=== PATIENT | female | born 1945 | race Caucasian/White ===

== ENCOUNTER 2016-08-08 10:14 | Outpatient (CLI) | payer MEDICARE ==
[2016-08-08 10:54] LABS: #Basophils 0.1 thou/uL (0.0-0.2); #Eosinphils 0.1 thou/uL (0.0-0.7); #Lymphocytes 1.5 thou/uL (1.20-3.40); #Monocytes 0.4 thou/uL (0.11-0.59); #Neutrophils 2.5 thou/uL (1.40-6.50); %Basophils 1.9 % (0.0-1.0); %Eosinophils 1.9 % (0.0-10.0); %Monocytes 7.9 % (0.0-10.0); Hematocrit 43.3 % (36.0-47.0); Mean Platelet Volume 6.5 fL (7.4-10.4); Red Blood Cell (RBC) Count 5.15 mill/uL (4.20-5.40); White Blood Cell (WBC) Count 4.6 thou/uL (4.8-10.8)
[2016-08-08 11:05] LABS: ALT (SGPT) 17 U/L (0-55); AST (SGOT) 13 U/L (5-34); Alkaline Phosphatase 73 U/L (40-150); Anion Gap 13 mmol/L (10-20); BUN (Urea Nitrogen) 13 mg/dL (9.8-20.1); Bilirubin, Total 0.8 mg/dL (0.2-1.2); Calc. Creatinine Clearance 0 mL/min (70-130); Calcium 9.3 mg/dL (7.8-10.44); Carbon Dioxide 28 mmol/L (23-31); Chloride 109 mmol/L (98-107); Estimated GFR-MDRD 80; Globulin 2.3 g/dL (2.4-3.5); LDL Cholesterol, Calculated 105 mg/dL
== END 2016-08-08 10:15 | disposition home or self-care (01) ==
LOC: HPCALD 10:14
PROVIDERS: ATTEND Family Medicine
DX: Z00.00 Encounter for general adult medical examination without abnormal findings (principal); I10 Essential (primary) hypertension; E78.5 Hyperlipidemia, unspecified
CPT/HCPCS: 36415; 80053; 80061; 84443; 85025

== ENCOUNTER 2016-08-18 08:15 | Outpatient (CLI) | payer MEDICARE ==
--- NOTE | 2016-08-18 18:27 | CT ---
CT CHEST AND ABDOMEN AND PELVIS: Date: 08/18/16 This exam was initially done without contrast and then with. Axial slices were acquired, then good l reconstructions were done. FINDINGS: CT CHEST: The mediastinum showed no sign of mass or adenopathy. No coronary artery calcifications of concern w ere seen. The pericardium shows no effusion. No specific cardiac abnormality was seen. The lungs are clear. No pulmonary nodules, effusions, or other abnormalities were appreciated. Degen erative changes seen in the spine, but there are no bony destructive lesions apparent. CT ABDOMEN/PELVIS: The liver, spleen, pancreas, adrenal glands, kidneys, gallbladder, and abdominal aorta all showed no acute findings. There is dense calcification of the aorta. The liver is perhaps a little generous i n size, but no space-occupying lesions were seen. The bowel is nondistended and shows no thickening or inflammatory change. The appendix appears donal l. One would wonder a little bit about the thickness of the folds in the distal stomach and proximal duodenum. This may or may not be significant. No free air or free fluid seen. CT of the pelvis shows no free fluid, inflammatory change, or significant adenopathy at the moment. No pelvic masses were seen. Degenerative changes present in the spine, though they are not excessive ly severe. IMPRESSION: 1. No evidence of metastatic disease. 2. Mildly generous hepatic size. 3. Possible mild thickening of folds in the distal stomach and proximal duodenum. This may or may n ot be of significance. POS: HOME
--- NOTE | 2016-08-18 18:39 | ULT ---
LEFT LOWER EXTREMITY VENOUS ULTRASOUND: Date: 08/18/16 Color duplex Doppler ultrasonography of the deep veins of the left lower extremity was performed. Al l deep veins were freely compressible from groin to ankle. No echogenic clot was seen. There was nor mal response to augmentation maneuvers. No focal mass or cyst was appreciated on any of these images. IMPRESSION: No evidence of deep venous thrombosis. POS: HOME
== END 2016-08-18 08:16 | disposition home or self-care (01) ==
LOC: BURCT 08:15
PROVIDERS: ATTEND Obstetrics & Gynecology Gynecologic Oncology
DX: C54.1 Malignant neoplasm of endometrium (principal); R22.42 Localized swelling, mass and lump, left lower limb
CPT/HCPCS: 71250; 71260; 74177

== ENCOUNTER 2016-11-06 10:49 | Outpatient (CLI) | payer MEDICARE | END 2016-11-06 10:50 | disposition home or self-care (01) | LOC: BURLAB 10:49 | PROVIDERS: ATTEND Obstetrics & Gynecology Gynecologic Oncology | DX: C54.1 Malignant neoplasm of endometrium (principal) | CPT/HCPCS: 36415; 86304 ==

== ENCOUNTER 2017-03-19 11:30 | Outpatient (CLI) | payer MEDICARE ==
--- NOTE | 2017-03-19 14:59 | RAD ---
CHEST TWO VIEWS: Date: 03-19-17 Comparison: None available. I reviewed a 08-18-16 CT of the chest that showed no pathology at that ti md. FINDINGS: The heart is normal in size. The lungs are clear. No infiltrate, effusion, or nodule was seen. There is no congestion of the vessels. Scoliosis is present as usual along with prominent degenerative ch anges of the spine. The trachea is midline. Calcific changes are seen in the aortic arch. IMPRESSION: Chronic changes but no acute findings. POS: HOME
== END 2017-03-19 11:31 | disposition home or self-care (01) ==
LOC: BURRAD 11:30
PROVIDERS: ATTEND Obstetrics & Gynecology Gynecologic Oncology
DX: C51.1 Malignant neoplasm of labium minus (principal)
CPT/HCPCS: 36415; 71020; 86304

== ENCOUNTER 2018-04-03 09:18 | Outpatient (CLI) | payer MEDICARE ==
--- NOTE | 2018-04-03 19:19 | CT ---
CT ABDOMEN AND PELVIS WITH CONTRAST: 04/03/[address] of the abdomen and pelvis was performed with oral and IV contrast. Comparison is made with a 08/18/16 study. Axial slices were initially acquired, then coronal and sagittal reconstructions were done. The lung bases are clear. No infiltrates, effusions, or pulmonary nodules were seen. The liver, spleen, pancreas, adrenal glands, kidneys and abdominal aorta showed no acute findings. Th ere was increasing calcification as one goes more distally down the aorta. Today's exam suggests a small 1.1 cm nodule in the right adrenal gland. Looking at the prior study, i t is difficult to be sure if this was present or not. The quality of the images is much better today and prior study does not appear to have gotten much contrast in it compared to today's exam. CT of the pelvis shows no pelvic masses, fluid collections, or adenopathy. There are no inflammatory changes. IMPRESSION: 1.1 cm right adrenal nodule. It may have been present previously but the images are not of the same q uality and this area is seen better today and contrast absorption is much better. The odds of significance probably still remain low. Options would include doing a dedicated adrenal C T without and with contrast with delays, or merely following the finding in 6 to 12 months on a separ ate scan. Code T POS: HOME
--- NOTE | 2018-04-04 09:50 | RAD ---
CHEST TWO VIEWS: Date: 04-03-18 Comparison: 03-19-17 FINDINGS: There has been no adverse interval change. The heart is normal in size. The mediastinum appears donal l. Calcification is seen in the aortic arch. No pulmonary masses or pleural effusions are seen. Signi ficant degenerative changes are present in the mid thoracic region. IMPRESSION: No acute finding. POS: HOME
== END 2018-04-03 09:19 | disposition home or self-care (01) ==
LOC: BURCT 09:18
PROVIDERS: ATTEND Obstetrics & Gynecology Gynecologic Oncology
DX: C54.1 Malignant neoplasm of endometrium (principal); E27.9 Disorder of adrenal gland, unspecified
CPT/HCPCS: 71046; 74177

== ENCOUNTER 2019-04-07 08:50 | Outpatient (CLI) | payer MEDICARE ==
[~2019-04-07 08:50] MED LIST: Iopamidol 370 76% 100 ML VIAL ONE
--- NOTE | 2019-04-07 17:25 | CT ---
CT ABDOMEN AND PELVIS WITH CONTRAST: Date: 04-07-[address] of the abdomen and pelvis was performed and compared with a 04-03-18 study. FINDINGS: There has been no adverse interval change. The lung bases are clear. A small hiatal hernia was noted. The liver, spleen, pancreas, gallbladder a nd kidneys were unremarkable in appearance. As was mentioned before, there is a small nodular area in the right adrenal gland that measured exactly the same 1.1 cm in size as before. While it does not h ave the typical density values of an adenoma, it has not changed at all over time. The aorta shows ca lcification but no aneurysm. The bowel shows no distention or wall thickening. The appendix appears normal. A moderate amount of s tool is seen in the right colon in particular. There is no free air or free fluid. CT of the pelvis shows no pelvic masses, fluid collections, adenopathy, or other findings of concern. IMPRESSION: No acute abdominal or pelvic findings. Exam comparable to the prior study. POS: HOME
== END 2019-04-07 08:51 | disposition home or self-care (01) ==
LOC: BURCT 08:50
PROVIDERS: ATTEND Obstetrics & Gynecology Gynecologic Oncology
DX: C54.1 Malignant neoplasm of endometrium (principal)
CPT/HCPCS: 74177; Q9967

== ENCOUNTER 2019-05-22 13:32 | Outpatient (CLI) | payer MEDICARE ==
[2019-05-22 17:05] LABS: #Eosinphils 0.1 thou/uL (0.0-0.7); #Lymphocytes 1.8 thou/uL (1.20-3.40); #Monocytes 0.4 thou/uL (0.11-0.59); #Neutrophils 3.3 thou/uL (1.40-6.50); %Basophils 0.6 % (0.0-1.0); %Eosinophils 2.2 % (0.0-10.0); %Lymphocytes 32.6 % (21.0-51.0); %Monocytes 6.7 % (0.0-10.0); Hemoglobin 13.3 g/dL (12.0-16.0); Mean Corpuscular HGB CONC 35.2 g/dL (32.0-36.0); Mean Corpuscular Hemoglobin 29.6 pg (27.0-31.0); Mean Platelet Volume 7.8 fL (7.4-10.4); Platelet Count 240 thou/uL (130-400); RBC Distribution Width 11.5 % (11.5-14.5); White Blood Cell (WBC) Count 5.6 thou/uL (4.8-10.8)
--- NOTE | 2019-05-22 18:44 | RAD ---
LUMBAR SPINE FOUR VIEWS: 05/22/19 No fracture was seen. There is slight disc space narrowing at L2-L3, L3-L4 and L5-S1. There are proba mary degenerated discs at L2-L3 and L3-L4. Anterior osteophytes are seen at all levels, especially L3- L4. Mild scoliosis convexed right is present. The SI joints appear normal. 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 There might be a small right renal calculus. IMPRESSION: Moderate degenerative changes as noted. POS: HOME
== END 2019-05-22 13:33 | disposition home or self-care (01) ==
LOC: BURRAD 13:32
PROVIDERS: ATTEND Family Medicine
DX: K92.1 Melena (principal); M54.5 Low back pain; M47.816 Spondylosis without myelopathy or radiculopathy, lumbar region
CPT/HCPCS: 36415; 72110; 85025

== ENCOUNTER 2020-04-14 11:26 | Outpatient (CLI) | payer MEDICARE ==
--- NOTE | 2020-04-14 16:22 | RAD ---
CHEST 2 VIEWS: Date: 04/14/2020 Comparison made with the 04/03/2018 study. The heart is normal in size. Calcification is seen in the aorta. There is no vascular congestion, allyson ma, or pleural effusion. No pulmonary infiltrate or mass seen. The lungs are mildly hyperexpanded as usual. Extensive degenerative changes are present in the spine. IMPRESSION: Stable exam showing no adverse changes since the 04/03/2018 study. POS: HOME
[2020-04-14 19:10] LABS: Follow-up Chemistry Comp? YES; Follow-up Result - Chemistry REPORT FAXED
== END 2020-04-14 11:27 | disposition home or self-care (01) ==
LOC: BURRAD 11:26
PROVIDERS: ATTEND Obstetrics & Gynecology Gynecologic Oncology
DX: C54.1 Malignant neoplasm of endometrium (principal)
CPT/HCPCS: 71046; 86304

== ENCOUNTER 2021-04-22 13:50 | Outpatient (CLI) | payer MEDICARE | END 2021-04-22 13:51 | disposition home or self-care (01) | LOC: BURRAD 13:50 | PROVIDERS: ATTEND Nurse Practitioner Family | DX: C54.1 Malignant neoplasm of endometrium (principal) | CPT/HCPCS: 71046 ==

== ENCOUNTER 2021-05-17 07:28 | Outpatient (CLI) | payer MEDICARE ==
[2021-05-17] MEDS ORDERED: Iopamidol 370 76% 100 ML VIAL ONE (12:25)
== END 2021-05-17 07:29 | disposition home or self-care (01) ==
LOC: BURCT 07:28
PROVIDERS: ATTEND Obstetrics & Gynecology Gynecologic Oncology
DX: C54.1 Malignant neoplasm of endometrium (principal)
CPT/HCPCS: 71260; 74177; Q9967

== ENCOUNTER 2023-06-12 11:58 | Outpatient (CLI) | payer MEDICARE | END 2023-06-12 11:59 | disposition home or self-care (01) | LOC: BURRAD 11:58 | PROVIDERS: ATTEND Family Medicine | DX: C54.1 Malignant neoplasm of endometrium (principal) | CPT/HCPCS: 36415; 71046; 86304 ==

== ENCOUNTER 2025-05-19 08:27 | Outpatient (CLI) | payer MEDICARE | END 2025-05-19 08:28 | disposition home or self-care (01) | LOC: BURRAD 08:27 | PROVIDERS: ATTEND Physician Assistant | DX: Z85.42 Personal history of malignant neoplasm of other parts of uterus (principal) | CPT/HCPCS: 71046 ==